=== PATIENT | female | born 1970 | race Asian ===

== ENCOUNTER 2016-08-29 10:24 | Emergency (ER) | payer BC, OTHER ==
[~2016-08-29] VITALS: Ht 152.4 cm; Wt 73.2 kg
[2016-08-29 12:54] LABS: BASOPHILS % (AUTO) 0.4 % (0.0-2.0); EOSINOPHILS % (AUTO) 1.9 % (1.0-6.0); HEMATOCRIT 35.6 % (36-46); HEMOGLOBIN 11.1 g/dL (12.0-16.0); LYMPHOCYTES # (AUTO) 2.9 K/uL (1.0-4.8); MEAN CORPUSCULAR HEMOGLOBIN 26.9 pg (26.0-34.0); MEAN CORPUSCULAR HGB CONC 31.3 G/dL (31.0-37.0); MEAN CORPUSCULAR VOLUME 86 fL (80-100); MONOCYTES # (AUTO) 0.6 K/uL (0.1-1.0); MONOCYTES % (AUTO) 5.9 % (2.0-9.0); NEUTROPHILS # (AUTO) 6.3 K/uL (1.8-7.7); NEUTROPHILS % (AUTO) 62.8 % (40.0-70.0); PLATELET COUNT (AUTO) 293 K/uL (150-450); RED BLOOD CELL COUNT(AUTO) 4.14 MIL/uL (4.00-5.20); RED CELL DISTRIBUTION WIDTH 16.1 % (11.5-14.5)
[2016-08-29] MEDS ORDERED: KETOROLAC TROMETHAMINE 60 MG/2 ML VIAL IM ONE (13:45)
[2016-08-29] MEDS ORDERED: ONDANSETRON HCL 4 MG TABLET PO ONE (14:15)
[2016-08-29] MEDS ORDERED: METOCLOPRAMIDE HCL 10 MG TABLET PO ONE (14:45)
[2016-08-29 14:46] LABS: GLUCOSE,POINT OF CARE 87 MG/DL (70-110)
[2016-08-29 15:57] LABS: APPEARANCE,URINE CLEAR (CLEAR); GLUCOSE, URINE (UA) NEGATIVE (NEGATIVE); KETONES,URINE NEGATIVE (NEGATIVE); LEUKOCYTE ESTERASE ,URINE NEGATIVE (NEGATIVE); OCCULT BLOOD,URINE NEGATIVE (NEGATIVE); PROTEIN,URINE NEGATIVE (NEGATIVE)
[2016-08-29 15:58] LABS: ADD UA MICROSCOPIC NO
[2016-08-29 16:03] VITALS: BP 107/74
== END 2016-08-29 16:49 | disposition home or self-care (01) ==
LOC: EMS 10:25
DX: G43.909 Migraine, unspecified, not intractable, without status migrainosus (principal); H10.9 Unspecified conjunctivitis
CPT/HCPCS: 36415; 70450; 81003; 82948; 82962; 84703; 85025; 96372; 99285; J1885; Q0162